=== PATIENT | male | born 2000 | race Hispanic/Latino ===

== ENCOUNTER 2024-02-16 13:59 | Emergency (ER) | payer OTHER ==
[~2024-02-16] VITALS: Ht 177.8 cm; Wt 72.6 kg
[2024-02-16 14:02] VITALS: PULSE 75; RESP 15; TEMP 98.4; O2SAT 100
[2024-02-16] MEDS: ACETAMINOPHEN 325 MG TAB PO ONE (14:44)
[2024-02-16] MEDS: KETOROLAC TROMETHAMINE 30 MG/ML VIAL IM STA (14:44)
[2024-02-16] MEDS ORDERED: NAPROXEN250 MG PO (15:32)
== END 2024-02-16 16:07 | disposition home or self-care (01) ==
LOC: ER 14:03
DX: S06.0X0A Concussion without loss of consciousness, initial encounter (principal); S62.522A Displaced fracture of distal phalanx of left thumb, initial encounter for closed fracture; V49.88XA Car occupant (driver) (passenger) injured in other specified transport accidents, initial encounter; Y92.89 Other specified places as the place of occurrence of the external cause
CPT/HCPCS: 29130; 70450; 72125; 73140; 99284; J1885